=== PATIENT | female | born 1970 | race American Indian/Alaskan Native ===

== ENCOUNTER 2017-12-06 14:48 | Inpatient (IN) | payer OTHER ==
--- NOTE | 2017-12-06 17:38 | Emergency Department Report ---
<JOHNATHON FONTANEZ - Last Filed: 12/06/17 17:26> ED General Adult HPI - General Chief complaint: Upper Respiratory Infection Stated complaint: FLU LIKE SYMPTOMS Time Seen by Provider: 12/06/17 17:21 Source: patient Mode of arrival: Ambulatory Limitations: No Limitations - History of Present Illness Initial comments: 47-year-old -[place] female comes into the emergency room complaining of persistent cough with pain under her left rib when she coughs or sneezes. Patient also reports. Her shortness of breathe and fatigued lightheadedness and bilateral lower leg edema. Patient reports that most of these symptoms that started since March. She now reports that she had difficulty sleeping. The past medical history of fibroids. She does not have a primary care provider. She does admit to diarrhea today with 3 loose stools. She reports vomiting 3 times in the last 7 days. -: month(s) (8), year(s) Severity scale (0 -10): 0 - Related Data Previous Rx's Medication Instructions Recorded Last Taken Type ALBUTEROL Inhaler [ProAir HFA 2 puff IH QID PRN #1 unit 05/17/13 Unknown Rx Inhaler] Azithromycin [Zithromax] 500 mg PO QDAY #5 tablet 05/17/13 Unknown Rx Fluconazole [Diflucan] 150 mg PO QDAY #1 tablet 05/17/13 Unknown Rx Hycodan 1 tsp PO Q6HR PRN #120 ml 05/17/13 Unknown Rx Allergies Allergy/AdvReac Type Severity Reaction Status Date / Time No Known Allergies Allergy Unverified 05/17/13 01:43 ED Review of Systems ROS: Stated complaint: FLU LIKE SYMPTOMS Other details as noted in HPI ED Past Medical Hx - Past Medical History Hx Headaches / Migraines: Yes Additional medical history: Uterine Fibroids,obesity - Surgical History Additional Surgical History: Fibroid removal- 2003 - Social History Smoking Status: Current Every Day Smoker Substance Use Type: Alcohol - Medications Home Medications: Home Medications Medication Instructions Recorded Confirmed Last Taken Type ALBUTEROL Inhaler [ProAir HFA 2 puff IH QID PRN #1 unit 05/17/13 Unknown Rx Inhaler] Azithromycin [Zithromax] 500 mg PO QDAY #5 tablet 05/17/13 Unknown Rx Fluconazole [Diflucan] 150 mg PO QDAY #1 tablet 05/17/13 Unknown Rx Hycodan 1 tsp PO Q6HR PRN #120 ml 05/17/13 Unknown Rx ED Physical Exam - General Limitations: No Limitations General appearance: alert, in no apparent distress - Head Head exam: Present: atraumatic, normocephalic - Eye Eye exam: Present: normal appearance - ENT ENT exam: Present: mucous membranes moist - Neck Neck exam: Present: normal inspection - Respiratory Respiratory exam: Present: normal lung sounds bilaterally. Absent: respiratory distress - Cardiovascular Cardiovascular Exam: Present: regular rate, normal rhythm. Absent: systolic murmur, diastolic murmur, rubs, gallop - GI/Abdominal GI/Abdominal exam: Present: soft, normal bowel sounds - Rectal Rectal exam: Present: deferred - Extremities Exam Extremities exam: Present: pedal edema - Back Exam Back exam: Present: normal inspection, full ROM - Neurological Exam Neurological exam: Present: alert, oriented X3 - Psychiatric Psychiatric exam: Present: normal affect, normal mood - Skin Skin exam: Present: warm, dry, intact, normal color. Absent: rash ED Course Vital Signs 12/06/17 12/06/17 14:59 19:50 Temperature 98.8 F 98.4 F Pulse Rate 101 H 91 H Respiratory 18 20 Rate Blood Pressure 186/97 Blood Pressure 205/98 [Left] Blood Pressure 181/103 [Right] O2 Sat by Pulse 99 100 Oximetry Critical care attestation.: If time is entered above; I have spent that time in minutes in the direct care of this critically ill patient, excluding procedure time. ED Disposition Clinical Impression: Dyspnea, Cough, Smoker, Cardiomegaly, Uncontrolled hypertension, Noncompliance with medication regimen, Bilateral leg edema, Obesity Disposition: OP ADMIT IP TO THIS HOSP Condition: Stable <ANDREEA GARCIA - Last Filed: 12/06/17 21:29> ED General Adult HPI - History of Present Illness Initial comments: Patient was diagnosed with hypertension in 2008 and although she has taken a pill urinary she has never consistently taking hypertensive medication or followed up. Patient has dyspnea on exertion that waxes and wanes but progressively worsening. Decreased exercise tolerance reported. She has wheezing with coughing spells. ED Course - Consultations Consultation #1: 12/06/17 21:13 case d/w Dr Jossie soto, will consult ED Medical Decision Making - Lab Data Result diagrams: 12/06/17 17:32 12/06/17 17:32 Lab Results 12/06/17 12/06/17 12/06/17 Range/Units 17:32 17:32 17:32 WBC 12.9 H (4.5-11.0) K/mm3 RBC 3.86 (3.65-5.03) M/mm3 Hgb 10.1 (10.1-14.3) gm/dl Hct 34.2 (30.3-42.9) % MCV 89 (79-97) fl MCH 26 L (28-32) pg MCHC 30 (30-34) % RDW 20.8 H (13.2-15.2) % Plt Count 303 (140-440) K/mm3 Lymph % (Auto) 14.7 (13.4-35.0) % [place] % (Auto) 8.3 H (0.0-7.3) % Eos % (Auto) 0.6 (0.0-4.3) % Baso % (Auto) 1.8 (0.0-1.8) % Lymph # 1.9 (1.2-5.4) K/mm3 [place] # 1.1 H (0.0-0.8) K/mm3 Eos # 0.1 (0.0-0.4) K/mm3 Baso # 0.2 H (0.0-0.1) K/mm3 Seg Neutrophils % 74.6 H (40.0-70.0) % Seg Neutrophils # 9.6 H (1.8-7.7) K/mm3 Sodium 141 (137-145) mmol/L Potassium 4.0 (3.6-5.0) mmol/L Chloride 100.5 (98-107) mmol/L Carbon Dioxide 28 (22-30) mmol/L Anion Gap 17 mmol/L BUN 8 (7-17) mg/dL Creatinine 0.7 (0.7-1.2) mg/dL Estimated GFR > 60 ml/min BUN/Creatinine Ratio 11 % Glucose 106 H (65-100) mg/dL Calcium 8.6 (8.4-10.2) mg/dL Total Bilirubin 0.20 (0.1-1.2) mg/dL AST 30 (5-40) units/L ALT 23 (7-56) units/L Alkaline Phosphatase 69 (35-129) units/L NT-Pro-B Natriuret Pep 96.33 (0-450) pg/mL Total Protein 7.3 (6.3-8.2) g/dL Albumin 3.6 L (3.9-5) g/dL Albumin/Globulin Ratio 1.0 % HCG, Qual Negative (Negative) Urine Color (Yellow) Urine Turbidity (Clear) Urine pH (5.0-7.0) Ur Specific [place] (1.003-1.030) Urine Protein (Negative) mg/dL Urine Glucose (UA) (Negative) mg/dL Urine Ketones (Negative) mg/dL Urine Blood (Negative) Urine Nitrite (Negative) Urine Bilirubin (Negative) Urine Urobilinogen (<2.0) mg/dL Ur Leukocyte Esterase (Negative) Urine WBC (Auto) (0.0-6.0) /HPF Urine RBC (Auto) (0.0-6.0) /HPF U Epithel Cells (Auto) (0-13.0) /HPF Urine Bacteria (Auto) (Negative) /HPF Urine Mucus /HPF 12/06/17 Range/Units 17:57 WBC (4.5-11.0) K/mm3 RBC (3.65-5.03) M/mm3 Hgb (10.1-14.3) gm/dl Hct (30.3-42.9) % MCV (79-97) fl MCH (28-32) pg MCHC (30-34) % RDW (13.2-15.2) % Plt Count (140-440) K/mm3 Lymph % (Auto) (13.4-35.0) % [place] % (Auto) (0.0-7.3) % Eos % (Auto) (0.0-4.3) % Baso % (Auto) (0.0-1.8) % Lymph # (1.2-5.4) K/mm3 [place] # (0.0-0.8) K/mm3 Eos # (0.0-0.4) K/mm3 Baso # (0.0-0.1) K/mm3 Seg Neutrophils % (40.0-70.0) % Seg Neutrophils # (1.8-7.7) K/mm3 Sodium (137-145) mmol/L Potassium (3.6-5.0) mmol/L Chloride (98-107) mmol/L Carbon Dioxide (22-30) mmol/L Anion Gap mmol/L BUN (7-17) mg/dL Creatinine (0.7-1.2) mg/dL Estimated GFR ml/min BUN/Creatinine Ratio % Glucose (65-100) mg/dL Calcium (8.4-10.2) mg/dL Total Bilirubin (0.1-1.2) mg/dL AST (5-40) units/L ALT (7-56) units/L Alkaline Phosphatase (35-129) units/L NT-Pro-B Natriuret Pep (0-450) pg/mL Total Protein (6.3-8.2) g/dL Albumin (3.9-5) g/dL Albumin/Globulin Ratio % HCG, Qual (Negative) Urine Color Yellow (Yellow) Urine Turbidity Clear (Clear) Urine pH 6.0 (5.0-7.0) Ur Specific [place] 1.025 (1.003-1.030) Urine Protein 100 mg/dl (Negative) mg/dL Urine Glucose (UA) Neg (Negative) mg/dL Urine Ketones Neg (Negative) mg/dL Urine Blood Neg (Negative) Urine Nitrite Neg (Negative) Urine Bilirubin Neg (Negative) Urine Urobilinogen 4.0 (<2.0) mg/dL Ur Leukocyte Esterase Neg (Negative) Urine WBC (Auto) 2.0 (0.0-6.0) /HPF Urine RBC (Auto) 2.0 (0.0-6.0) /HPF U Epithel Cells (Auto) 4.0 (0-13.0) /HPF Urine Bacteria (Auto) 1+ (Negative) /HPF Urine Mucus 3+ /HPF - EKG Data -: EKG Interpreted by Ct EKG shows normal: sinus rhythm, axis (-8), QRS complexes (85), ST-T waves (lat t inv) Rate: normal (96) - Radiology Data Radiology results: report reviewed cxr pa and lat IMPRESSION: No acute cardiopulmonary process seen. Marked cardiomegaly. - Medical Decision Making Plan to admit patient to the hospital for further cardiac evaluation and blood pressure control. Symptoms seem to be chronic but progressing. Case discussed with fibre cement moulder. Clonidine given in the ED for blood pressure management On exam patient has pitting one plus edema extending to legs - Differential Diagnosis bronchitis, CHF, pneumonia, renal failure, liver failure, COPD Critical Care Time: No ED Disposition Is pt being admited?: Yes Time of Disposition: 21:17 (Dr March/[facility])
[2017-12-06 17:50] LABS: Basophils # (Auto) 0.2 K/mm3 (0.0-0.1); Basophils % (Auto) 1.8 % (0.0-1.8); Eosinophils # (Auto) 0.1 K/mm3 (0.0-0.4); Eosinophils % (Auto) 0.6 % (0.0-4.3); Lymphocytes # (Auto) 1.9 K/mm3 (1.2-5.4); Lymphocytes % (Auto) 14.7 % (13.4-35.0); Mean Corpuscular HGB Conc 30 % (30-34); Mean Corpuscular Hemoglobin 26 pg (28-32); Mean Corpuscular Volume 89 fl (79-97); Monocytes # (Auto) 1.1 K/mm3 (0.0-0.8); Monocytes % (Auto) 8.3 % (0.0-7.3); Platelet Count 303 K/mm3 (140-440); Red Blood Count 3.86 M/mm3 (3.65-5.03)
[2017-12-06 18:01] LABS: Hematocrit 34.2 % (30.3-42.9); Hemoglobin 10.1 gm/dl (10.1-14.3); Red Cell Distribution Width 20.8 % (13.2-15.2)
[2017-12-06 18:10] LABS: Alanine Aminotransferase 23 units/L (7-56); Albumin 3.6 g/dL (3.9-5); BUN/Creatinine Ratio 11; Blood Urea Nitrogen 8 mg/dL (7-17); Calcium 8.6 mg/dL (8.4-10.2); Hemolysis Index 8
--- NOTE | 2017-12-06 19:22 | XRay Report ---
FINAL REPORT EXAM: XR CHEST ROUTINE 2V HISTORY: SOB TECHNIQUE: PA and lateral views of the chest PRIORS: None. FINDINGS: Lines, tubes, and devices: N/A Lungs and pleura: Trachea is normal in position. Lungs are clear of infiltrate, pleural effusion, vascular congestion, or pneumothorax. Cardiomediastinal silhouette: The heart is markedly enlarged. Other: Bony structures are intact. IMPRESSION: No acute cardiopulmonary process seen. Marked cardiomegaly.
[2017-12-06 19:39] LABS: Bacteria,Urine 1+ /HPF (Negative); Bilirubin,Urine NEG (Negative); Blood,Urine NEG (Negative); Color,Urine Yellow (Yellow); Mucus,Urine 3+ /HPF
[2017-12-06] MEDS ORDERED: CATAPRES PO ONE (20:40)
[2017-12-06] MEDS ORDERED: NITROSTAT SL PRN (22:59)
[2017-12-06] MEDS ORDERED: XANAX PO PRN (22:59)
[2017-12-06] MEDS ORDERED: IMDUR PO SCH (23:03)
[2017-12-06] MEDS ORDERED: TYLENOL PO PRN (23:07)
[2017-12-06] MEDS ORDERED: ZOFRAN IV PRN (23:07)
[2017-12-06] MEDS ORDERED: APRESOLINE IV PRN (23:08)
[2017-12-06] MEDS ORDERED: GUAIFENESIN DM SYRUP PO PRN (23:09)
[2017-12-06] MEDS: APRESOLINE PO SCH (23:46)
[2017-12-06] MEDS: LASIX IV SCH (23:46)
[2017-12-06] MEDS: LOPRESSOR PO SCH (23:47)
--- NOTE | 2017-12-07 01:04 | History and Physical Report ---
History of Present Illness Date of examination: 12/06/17 Date of admission: 12/06/17 23:13 Chief complaint: chest pain History of present illness: Patient is a 47 year old -[place] female who presented to the ED on account of 2 days history of pleuritic chest pain. She has associated dry cough , bilateral leg swelling, sob, orthopnea, PND, diaphoresis, nausea with vomiting , dizziness and blurry vision. No fever, chills, palpitation, headaches, syncope or loss of consciousness. She also has positive history of abdominal distention, no abdomen pain, constipation or diarrhea. Past History Past Medical History: hypertension, migraines, other (uterine fibroids, morbid obesity) Past Surgical History: Other (fibroid removal) Social history: smoking (for 25 years), other (admits to occasional alcohol use , but denies illicit drug use) Family history: other (reviewed and noncontributory) Medications and Allergies Allergies Allergy/AdvReac Type Severity Reaction Status Date / Time No Known Allergies Allergy Unverified 05/17/13 01:43 Home Medications Medication Instructions Recorded Confirmed Last Taken Type Azithromycin [Zithromax] 500 mg PO QDAY #5 tablet 05/17/13 Unknown Rx Fluconazole [Diflucan] 150 mg PO QDAY #1 tablet 05/17/13 Unknown Rx Hycodan 1 tsp PO Q6HR PRN #120 ml 05/17/13 Unknown Rx RX: ALBUTEROL Inhaler [ProAir HFA 2 puff IH QID PRN #1 unit 05/17/13 Unknown Rx Inhaler] Active Meds: Active Medications Acetaminophen (Tylenol) 650 mg PO Q6H PRN PRN Reason: Fever Alprazolam (Xanax) 0.125 mg PO Q8H PRN PRN Reason: Agitation Aspirin (Baby Aspirin) 81 mg PO QDAY [facility] Enoxaparin Sodium (Lovenox) 40 mg SUB-Q QDAY [facility] Furosemide (Lasix) 40 mg IV Q8H [facility] Last Admin: 12/06/17 23:46 Dose: 40 mg Guaifenesin (Guaifenesin Dm Syrup) 10 ml PO Q6H PRN PRN Reason: Cough Hydralazine HCl (Apresoline) 50 mg PO TID [facility] Last Admin: 12/06/17 23:46 Dose: 50 mg Hydralazine HCl (Apresoline) 20 mg IV Q4H PRN PRN Reason: Blood Pressure Isosorbide Mononitrate (Imdur) 60 mg PO QDAY [facility] Last Admin: 12/06/17 23:48 Dose: 60 mg Losartan Potassium (Cozaar) 100 mg PO QDAY [facility] Metoprolol Tartrate (Lopressor) 50 mg PO BID [facility] Last Admin: 12/06/17 23:47 Dose: 50 mg Nitroglycerin (Nitrostat) 0.4 mg SL .Q5MIN PRN PRN Reason: Chest Pain Ondansetron HCl (Zofran) 4 mg IV Q6H PRN PRN Reason: Nausea Review of Systems All systems: negative (except as documented in the HPI, all other systems were reviewed and negative) Exam - Constitutional Vitals: Temp Pulse Resp BP Pulse Ox 98.2 F 94 H 20 185/91 100 12/06/17 21:57 12/06/17 23:48 12/06/17 21:57 12/06/17 23:48 12/06/17 21:57 General appearance: Present: no acute distress, well-nourished, other (morbidly obese) - EENT Eyes: Present: PERRL, EOM intact ENT: hearing intact, clear oral mucosa - Neck Neck: Present: supple, normal ROM - Respiratory Respiratory effort: normal Respiratory: bilateral: diminished - Cardiovascular Rhythm: regular Heart Sounds: Present: S1 & S2 - Extremities Extremities: pulses symmetrical Extremity abnormal: edema (in BLE) Peripheral Pulses: within normal limits - Abdominal General gastrointestinal: Present: soft, non-tender, distended, normal bowel sounds Female genitourinary: Present: normal - Integumentary Integumentary: Present: warm, dry - Musculoskeletal Musculoskeletal: gait normal, strength equal bilaterally - Psychiatric Psychiatric: appropriate mood/affect, intact judgment & insight - Neurologic Neurologic: CNII-XII intact, moves all extremities Results - Labs CBC & Chem 7: 12/06/17 17:32 12/06/17 17:32 Labs: Laboratory Last Values WBC 12.9 K/mm3 (4.5-11.0) H 12/06/17 17:32 RBC 3.86 M/mm3 (3.65-5.03) 12/06/17 17:32 Hgb 10.1 gm/dl (10.1-14.3) 12/06/17 17:32 Hct 34.2 % (30.3-42.9) 12/06/17 17:32 MCV 89 fl (79-97) 12/06/17 17:32 MCH 26 pg (28-32) L 12/06/17 17:32 MCHC 30 % (30-34) 12/06/17 17:32 RDW 20.8 % (13.2-15.2) H 12/06/17 17:32 Plt Count 303 K/mm3 (140-440) 12/06/17 17:32 Lymph % (Auto) 14.7 % (13.4-35.0) 12/06/17 17:32 [place] % (Auto) 8.3 % (0.0-7.3) H 12/06/17 17:32 Eos % (Auto) 0.6 % (0.0-4.3) 12/06/17 17:32 Baso % (Auto) 1.8 % (0.0-1.8) 12/06/17 17:32 Lymph # 1.9 K/mm3 (1.2-5.4) 12/06/17 17:32 [place] # 1.1 K/mm3 (0.0-0.8) H 12/06/17 17:32 Eos # 0.1 K/mm3 (0.0-0.4) 12/06/17 17:32 Baso # 0.2 K/mm3 (0.0-0.1) H 12/06/17 17:32 Seg Neutrophils % 74.6 % (40.0-70.0) H 12/06/17 17:32 Seg Neutrophils # 9.6 K/mm3 (1.8-7.7) H 12/06/17 17:32 Sodium 141 mmol/L (137-145) 12/06/17 17:32 Potassium 4.0 mmol/L (3.6-5.0) 12/06/17 17:32 Chloride 100.5 mmol/L (98-107) 12/06/17 17:32 Carbon Dioxide 28 mmol/L (22-30) 12/06/17 17:32 Anion Gap 17 mmol/L 12/06/17 17:32 BUN 8 mg/dL (7-17) 12/06/17 17:32 Creatinine 0.7 mg/dL (0.7-1.2) 12/06/17 17:32 Estimated GFR > 60 ml/min 12/06/17 17:32 BUN/Creatinine Ratio 11 % 12/06/17 17:32 Glucose 106 mg/dL (65-100) H 12/06/17 17:32 Calcium 8.6 mg/dL (8.4-10.2) 12/06/17 17:32 Total Bilirubin 0.20 mg/dL (0.1-1.2) 12/06/17 17:32 AST 30 units/L (5-40) 12/06/17 17:32 ALT 23 units/L (7-56) 12/06/17 17:32 Alkaline Phosphatase 69 units/L (35-129) 12/06/17 17:32 Total Creatine Kinase 167 units/L (30-135) H 12/06/17 17:32 Troponin T < 0.010 ng/mL (0.00-0.029) 12/06/17 23:30 NT-Pro-B Natriuret Pep 96.33 pg/mL (0-450) 12/06/17 17:32 Total Protein 7.3 g/dL (6.3-8.2) 12/06/17 17:32 Albumin 3.6 g/dL (3.9-5) L 12/06/17 17:32 Albumin/Globulin Ratio 1.0 % 12/06/17 17:32 HCG, Qual Negative (Negative) 12/06/17 17:32 Urine Color Yellow (Yellow) 12/06/17 17:57 Urine Turbidity Clear (Clear) 12/06/17 17:57 Urine pH 6.0 (5.0-7.0) 12/06/17 17:57 Ur Specific [place] 1.025 (1.003-1.030) 12/06/17 17:57 Urine Protein 100 mg/dl mg/dL (Negative) 12/06/17 17:57 Urine Glucose (UA) Neg mg/dL (Negative) 12/06/17 17:57 Urine Ketones Neg mg/dL (Negative) 12/06/17 17:57 Urine Blood Neg (Negative) 12/06/17 17:57 Urine Nitrite Neg (Negative) 12/06/17 17:57 Urine Bilirubin Neg (Negative) 12/06/17 17:57 Urine Urobilinogen 4.0 mg/dL (<2.0) 12/06/17 17:57 Ur Leukocyte Esterase Neg (Negative) 12/06/17 17:57 Urine WBC (Auto) 2.0 /HPF (0.0-6.0) 12/06/17 17:57 Urine RBC (Auto) 2.0 /HPF (0.0-6.0) 12/06/17 17:57 U Epithel Cells (Auto) 4.0 /HPF (0-13.0) 12/06/17 17:57 Urine Bacteria (Auto) 1+ /HPF (Negative) 12/06/17 17:57 Urine Mucus 3+ /HPF 12/06/17 17:57 Assessment and Plan Assessment and plan: Hypertensive cardiomyopathy -Will place patient on a CHF protocol -Will order echocardiogram to assess EF and valvular function. -Vegetable Farm Manager was consulted in the ED. Hypertensive emergency -Will place patient on both scheduled and when necessary antihypertensives Chest pain, rule out ACS -Will continue serial troponin level monitoring Leukocytosis -Probably reactive, will monitor WBC level Morbid obesity with BMI of 49.5 -Weight loss recommended Migraines -placed on PRN analgesics Prophylaxis -DVT prophylaxis with Lovenox and GI prophylaxis with Protonix 38 minutes spent in coordinating care
[2017-12-07] MEDS ORDERED: NORCO 5/325 PO PRN (01:15)
[2017-12-07] MEDS: LASIX IV SCH ×3 (06:39→22:13)
[2017-12-07 06:45] LABS: Basophils % (Auto) 0.5 % (0.0-1.8); Eosinophils # (Auto) 0.1 K/mm3 (0.0-0.4); Eosinophils % (Auto) 0.7 % (0.0-4.3); Lymphocytes % (Auto) 19.1 % (13.4-35.0); Mean Corpuscular HGB Conc 30 % (30-34); Mean Corpuscular Volume 88 fl (79-97); Monocytes # (Auto) 0.8 K/mm3 (0.0-0.8); Monocytes % (Auto) 8.3 % (0.0-7.3); Platelet Count 287 K/mm3 (140-440); Red Blood Count 3.56 M/mm3 (3.65-5.03)
[2017-12-07 06:46] LABS: Hematocrit 31.3 % (30.3-42.9); Hemoglobin 9.2 gm/dl (10.1-14.3); Mean Corpuscular Hemoglobin 26 pg (28-32); Red Cell Distribution Width 20.7 % (13.2-15.2)
[2017-12-07 07:05] LABS: BUN/Creatinine Ratio 13; Blood Urea Nitrogen 9 mg/dL (7-17); Calcium 8.2 mg/dL (8.4-10.2); Hemolysis Index 0
[2017-12-07] MEDS: APRESOLINE PO SCH ×3 (07:58→22:11)
--- NOTE | 2017-12-07 09:58 | Progress Note ---
Assessment and Plan Hypertensive cardiomyopathy -Will place patient on a CHF protocol -Will order echocardiogram to assess EF and valvular function. -Turret Lathe Operator was consulted in the ED. Hypertensive emergency -Will place patient on both scheduled and when necessary antihypertensives Chest pain, rule out ACS -Will continue serial troponin level monitoring Leukocytosis -Probably reactive, will monitor WBC level Morbid obesity with BMI of 49.5 -Weight loss recommended Migraines -placed on PRN analgesics Prophylaxis -DVT prophylaxis with Lovenox and GI prophylaxis with Protonix Subjective Date of service: 12/07/17 Principal diagnosis: chest pain Interval history: hypertensive cardiomyopathy Objective - Constitutional Vitals: Vital Signs - 12hr 12/06/17 12/06/17 12/06/17 21:57 23:46 23:47 Temperature 98.2 F Pulse Rate 90 94 H 94 H Respiratory 20 Rate Blood Pressure 185/91 185/91 Blood Pressure 190/99 [Right] O2 Sat by Pulse 100 Oximetry 12/06/17 12/06/17 12/07/17 23:48 23:55 00:34 Temperature 98.2 F Pulse Rate 94 H 105 H 93 H Respiratory 20 Rate Blood Pressure 185/91 178/89 Blood Pressure [Right] O2 Sat by Pulse 97 Oximetry 12/07/17 12/07/17 12/07/17 00:35 05:22 07:58 Temperature 98.0 F Pulse Rate 94 H 81 81 Respiratory 20 Rate Blood Pressure 115/64 Blood Pressure 115/64 [Right] O2 Sat by Pulse 98 97 Oximetry General appearance: Present: no acute distress, well-nourished - EENT Eyes: PERRL, EOM intact - Neck Neck: supple, normal ROM - Respiratory Respiratory effort: normal Respiratory: bilateral: CTA - Cardiovascular Rhythm: regular Heart Sounds: Present: S1 & S2. Absent: gallop, rub Extremities: pulses intact, No edema, normal color, Full ROM - Gastrointestinal General gastrointestinal: Present: soft, non-tender, non-distended, normal bowel sounds - Genitourinary Female genitourinary: normal - Integumentary Integumentary: clear, warm, dry - Musculoskeletal Musculoskeletal: 1, strength equal bilaterally - Neurologic Neurologic: moves all extremities - Psychiatric Psychiatric: memory intact, appropriate mood/affect, intact judgment & insight - Labs CBC & Chem 7: 12/07/17 06:13 12/07/17 06:13 Labs: Abnormal lab results 12/06/17 12/06/17 12/07/17 Range/Units 17:32 17:32 06:13 WBC 12.9 H (4.5-11.0) K/mm3 RBC (3.65-5.03) M/mm3 Hgb (10.1-14.3) gm/dl MCH 26 L (28-32) pg RDW 20.8 H (13.2-15.2) % [place] % (Auto) 8.3 H (0.0-7.3) % [place] # 1.1 H (0.0-0.8) K/mm3 Baso # 0.2 H (0.0-0.1) K/mm3 Seg Neutrophils % 74.6 H (40.0-70.0) % Seg Neutrophils # 9.6 H (1.8-7.7) K/mm3 Glucose 106 H 113 H (65-100) mg/dL Calcium 8.2 L (8.4-10.2) mg/dL Total Creatine Kinase 167 H (30-135) units/L Albumin 3.6 L (3.9-5) g/dL 12/07/17 Range/Units 06:13 WBC (4.5-11.0) K/mm3 RBC 3.56 L (3.65-5.03) M/mm3 Hgb 9.2 L (10.1-14.3) gm/dl MCH 26 L (28-32) pg RDW 20.7 H (13.2-15.2) % [place] % (Auto) 8.3 H (0.0-7.3) % [place] # (0.0-0.8) K/mm3 Baso # (0.0-0.1) K/mm3 Seg Neutrophils % 71.4 H (40.0-70.0) % Seg Neutrophils # (1.8-7.7) K/mm3 Glucose (65-100) mg/dL Calcium (8.4-10.2) mg/dL Total Creatine Kinase (30-135) units/L Albumin (3.9-5) g/dL
--- NOTE | 2017-12-07 10:51 | Consultation ---
History of Present Illness Consult date: 12/07/17 Consult reason: congestive heart failure History of present illness: This is a 47yr old woman who presented to the emergency department with complaints of shortness of breath and chest pain, admitted for further evaluation. Patient reports shortness of breath ongoing for several months, now associated with minimal exertion, coughs, chest pain and lower extremity edema. Initial workup documents a blood pressure of 205/98. A chest x-ray reports marked cardiomegaly but no interstitial edema. Patient gives a history of Hypertension, noncompliant with medications and outpatient follow-ups. Past History Past Medical History: hypertension, migraines, other (uterine fibroids, morbid obesity) Past Surgical History: Other (fibroid removal) Social history: smoking (for 25 years), other (admits to occasional alcohol use , but denies illicit drug use) Family history: other (reviewed and noncontributory) Medications and Allergies Allergies Allergy/AdvReac Type Severity Reaction Status Date / Time No Known Allergies Allergy Unverified 05/17/13 01:43 Home Medications Medication Instructions Recorded Confirmed Last Taken Type No Known Home Medications [No 12/07/17 12/07/17 Unknown History Reported Home Medications] Active Meds: Active Medications Acetaminophen (Tylenol) 650 mg PO Q6H PRN PRN Reason: Fever Acetaminophen/Hydrocodone Bitart ([place] 5/325) 1 each PO Q4H PRN PRN Reason: Pain, Moderate (4-6) Alprazolam (Xanax) 0.125 mg PO Q8H PRN PRN Reason: Agitation Aspirin (Baby Aspirin) 81 mg PO QDAY [facility] Enoxaparin Sodium (Lovenox) 40 mg SUB-Q QDAY [facility] Furosemide (Lasix) 40 mg IV Q8H [facility] Last Admin: 12/07/17 06:39 Dose: 40 mg Guaifenesin (Guaifenesin Dm Syrup) 10 ml PO Q6H PRN PRN Reason: Cough Hydralazine HCl (Apresoline) 50 mg PO TID [facility] Last Admin: 12/07/17 07:58 Dose: 50 mg Hydralazine HCl (Apresoline) 20 mg IV Q4H PRN PRN Reason: Blood Pressure Losartan Potassium (Cozaar) 100 mg PO QDAY [facility] Metoprolol Tartrate (Lopressor) 50 mg PO BID [facility] Last Admin: 12/06/17 23:47 Dose: 50 mg Nitroglycerin (Nitrostat) 0.4 mg SL .Q5MIN PRN PRN Reason: Chest Pain Ondansetron HCl (Zofran) 4 mg IV Q6H PRN PRN Reason: Nausea Pantoprazole Sodium (Protonix) 40 mg PO QDAY [facility] Physical Examination Vital Signs Temp Pulse Resp BP Pulse Ox 98.8 F 101 H 18 186/97 99 12/06/17 14:59 12/06/17 14:59 12/06/17 14:59 12/06/17 14:59 12/06/17 14:59 General appearance: no acute distress HEENT: Positive: PERRL Neck: Positive: trachea midline Cardiac: Positive: Reg Rate and Rhythm Lungs: Positive: Decreased Breath Sounds Neuro: Positive: Grossly Intact Extremities: Present: +1 Edema Results 12/07/17 06:13 12/07/17 06:13 Cardiac Enzymes 12/06/17 Range/Units 17:32 AST 30 (5-40) units/L CBC 12/06/17 12/07/17 Range/Units 17:32 06:13 WBC 12.9 H 10.2 (4.5-11.0) K/mm3 RBC 3.86 3.56 L (3.65-5.03) M/mm3 Hgb 10.1 9.2 L (10.1-14.3) gm/dl Hct 34.2 31.3 (30.3-42.9) % Plt Count 303 287 (140-440) K/mm3 Lymph # 1.9 2.0 (1.2-5.4) K/mm3 [place] # 1.1 H 0.8 (0.0-0.8) K/mm3 Eos # 0.1 0.1 (0.0-0.4) K/mm3 Baso # 0.2 H 0.0 (0.0-0.1) K/mm3 Comprehensive Metabolic Panel 12/06/17 12/07/17 Range/Units 17:32 06:13 Sodium 141 137 (137-145) mmol/L Potassium 4.0 3.6 (3.6-5.0) mmol/L Chloride 100.5 102.3 (98-107) mmol/L Carbon Dioxide 28 27 (22-30) mmol/L BUN 8 9 (7-17) mg/dL Creatinine 0.7 0.7 (0.7-1.2) mg/dL Glucose 106 H 113 H (65-100) mg/dL Calcium 8.6 8.2 L (8.4-10.2) mg/dL AST 30 (5-40) units/L ALT 23 (7-56) units/L Alkaline Phosphatase 69 (35-129) units/L Total Protein 7.3 (6.3-8.2) g/dL Albumin 3.6 L (3.9-5) g/dL Assessment and Plan Shortness of breath Hypertension -better Obesity Tobacco abuse We will obtain an echocardiogram for LVEF assessment.
[2017-12-07] MEDS: PROTONIX PO SCH (11:34)
[2017-12-07] MEDS: LOPRESSOR PO SCH ×2 (11:34→22:11)
[2017-12-07] MEDS: BABY ASPIRIN PO SCH (11:35)
[2017-12-07] MEDS: LOVENOX SUB-Q SCH (11:35)
[2017-12-07] MEDS: COZAAR PO SCH (11:39)
[2017-12-08] MEDS: LASIX IV SCH ×3 (05:22→17:50)
[2017-12-08 06:02] LABS: Basophils # (Auto) 0.1 K/mm3 (0.0-0.1); Basophils % (Auto) 0.8 % (0.0-1.8); Eosinophils # (Auto) 0.1 K/mm3 (0.0-0.4); Eosinophils % (Auto) 0.6 % (0.0-4.3); Hematocrit 32.4 % (30.3-42.9); Lymphocytes # (Auto) 1.9 K/mm3 (1.2-5.4); Lymphocytes % (Auto) 19.8 % (13.4-35.0); Mean Corpuscular HGB Conc 31 % (30-34); Mean Corpuscular Hemoglobin 27 pg (28-32); Mean Corpuscular Volume 87 fl (79-97); Monocytes # (Auto) 0.9 K/mm3 (0.0-0.8); Monocytes % (Auto) 8.9 % (0.0-7.3); Platelet Count 271 K/mm3 (140-440); Red Blood Count 3.74 M/mm3 (3.65-5.03)
[2017-12-08 06:03] LABS: Red Cell Distribution Width 20.8 % (13.2-15.2)
[2017-12-08 06:14] LABS: Alanine Aminotransferase 20 units/L (7-56); Albumin 3.5 g/dL (3.9-5); BUN/Creatinine Ratio 17; Blood Urea Nitrogen 12 mg/dL (7-17); Calcium 8.7 mg/dL (8.4-10.2); Hemolysis Index 16
[2017-12-08] MEDS: LOVENOX SUB-Q SCH (10:47)
[2017-12-08] MEDS: COZAAR PO SCH (10:47)
[2017-12-08] MEDS: APRESOLINE PO SCH ×3 (10:47→21:08)
[2017-12-08] MEDS: BABY ASPIRIN PO SCH (10:48)
[2017-12-08] MEDS: LOPRESSOR PO SCH ×2 (10:48→21:15)
[2017-12-08] MEDS: PROTONIX PO SCH (10:48)
--- NOTE | 2017-12-08 11:25 | Progress Note ---
Assessment and Plan Shortness of breath Hypertension -better Nocturnal pause on telemetry strips patient has not had any silvestre-arrhythmias while awake. Obesity Tobacco abuse Normal LVEF on echocardiogram. Recommendations: Check a TSH and magnesium. Pre-discharge cardiac evaluation with a stress test tomorrow morning. Outpatient pulmonary evaluation for sleep apnea. Subjective Date of service: 12/08/17 Principal diagnosis: chest pain Interval history: Patient noted nocturnal sinus pauses, up to 4 seconds on telemetry monitoring overnight. Patient has not had any silvestre- arrhythmias while awake. Objective Vital Signs Temp Pulse Resp BP BP Pulse Ox 12/08/17 10:47 83 144/95 12/08/17 08:05 82 98 12/08/17 06:00 77 12/08/17 05:06 98.0 F 79 20 146/85 98 12/08/17 00:42 98.0 F 80 19 155/63 98 12/07/17 22:11 81 160/81 12/07/17 22:00 87 12/07/17 21:08 98.3 F 86 20 160/81 97 12/07/17 18:10 98.1 F 79 18 140/80 95 12/07/17 17:14 80 95 12/07/17 15:17 74 147/74 12/07/17 15:05 80 12/07/17 11:39 74 147/74 12/07/17 11:34 87 147/74 - Physical Examination General: No Apparent Distress HEENT: Positive: PERRL Neck: Positive: trachea midline Cardiac: Positive: Reg Rate and Rhythm Lungs: Positive: Decreased Breath Sounds Neuro: Positive: Grossly Intact Extremities: Present: +1 Edema - Labs and Meds Cardiac Enzymes 12/08/17 Range/Units 05:26 AST 26 (5-40) units/L CBC 12/08/17 Range/Units 05:26 WBC 9.8 (4.5-11.0) K/mm3 RBC 3.74 (3.65-5.03) M/mm3 Hgb 10.0 L (10.1-14.3) gm/dl Hct 32.4 (30.3-42.9) % Plt Count 271 (140-440) K/mm3 Lymph # 1.9 (1.2-5.4) K/mm3 [place] # 0.9 H (0.0-0.8) K/mm3 Eos # 0.1 (0.0-0.4) K/mm3 Baso # 0.1 (0.0-0.1) K/mm3 Comprehensive Metabolic Panel 12/08/17 Range/Units 05:26 Sodium 142 (137-145) mmol/L Potassium 3.9 (3.6-5.0) mmol/L Chloride 99.9 (98-107) mmol/L Carbon Dioxide 29 (22-30) mmol/L BUN 12 (7-17) mg/dL Creatinine 0.7 (0.7-1.2) mg/dL Glucose 112 H (65-100) mg/dL Calcium 8.7 (8.4-10.2) mg/dL AST 26 (5-40) units/L ALT 20 (7-56) units/L Alkaline Phosphatase 61 (35-129) units/L Total Protein 7.0 (6.3-8.2) g/dL Albumin 3.5 L (3.9-5) g/dL
--- NOTE | 2017-12-08 15:35 | Progress Note ---
Assessment and Plan Assessment and plan: Acute diastolic HF exacerbation -improving on tx -echocardiogram showed EF of 55-60% with diastolic dysfunction -Cat Dog Or Other Pet Groomer following Hypertension -BP improved on current meds Chest pain, resolved -serial troponin levels neg -for NST in am Leukocytosis, likely reactive -resolved Morbid obesity with BMI of 49.5 -pt counseled on weight loss Migraines -on PRN analgesics Nocturnal pauses per site monitor -probably sec to LAUREN -pt will need outpt sleep study -for NST in am to r/o ACS Tobacco abuse -pt counseled on cessation Prophylaxis -DVT prophylaxis with Lovenox Disp: d/c pt when medically stable History Interval history: Pt has no new complaints. She denies chest pain or sob. Reported nocturnal pauses on her site monitor. Hospitalist Physical - Constitutional Vitals: Temp Pulse Resp BP Pulse Ox 98.0 F 84 18 139/75 96 12/08/17 10:39 12/08/17 14:56 12/08/17 14:50 12/08/17 14:56 12/08/17 14:50 General appearance: Present: no acute distress - EENT Eyes: Present: PERRL, EOM intact - Neck Neck: Present: supple - Respiratory Respiratory effort: normal Respiratory: bilateral: CTA - Cardiovascular Rhythm: regular Heart Sounds: Present: S1 & S2 - Extremities Extremity abnormal: edema (LT LE) - Abdominal General gastrointestinal: soft, non-tender, normal bowel sounds - Neurologic Neurologic: CNII-XII intact Results - Labs CBC & Chem 7: 12/08/17 05:26 12/08/17 05:26 Labs: Laboratory Last Values WBC 9.8 K/mm3 (4.5-11.0) 12/08/17 05:26 RBC 3.74 M/mm3 (3.65-5.03) 12/08/17 05:26 Hgb 10.0 gm/dl (10.1-14.3) L 12/08/17 05:26 Hct 32.4 % (30.3-42.9) 12/08/17 05:26 MCV 87 fl (79-97) 12/08/17 05:26 MCH 27 pg (28-32) L 12/08/17 05:26 MCHC 31 % (30-34) 12/08/17 05:26 RDW 20.8 % (13.2-15.2) H 12/08/17 05:26 Plt Count 271 K/mm3 (140-440) 12/08/17 05:26 Lymph % (Auto) 19.8 % (13.4-35.0) 12/08/17 05:26 [place] % (Auto) 8.9 % (0.0-7.3) H 12/08/17 05:26 Eos % (Auto) 0.6 % (0.0-4.3) 12/08/17 05:26 Baso % (Auto) 0.8 % (0.0-1.8) 12/08/17 05:26 Lymph # 1.9 K/mm3 (1.2-5.4) 12/08/17 05:26 [place] # 0.9 K/mm3 (0.0-0.8) H 12/08/17 05:26 Eos # 0.1 K/mm3 (0.0-0.4) 12/08/17 05:26 Baso # 0.1 K/mm3 (0.0-0.1) 12/08/17 05:26 Seg Neutrophils % 69.9 % (40.0-70.0) 12/08/17 05:26 Seg Neutrophils # 6.9 K/mm3 (1.8-7.7) 12/08/17 05:26 Sodium 142 mmol/L (137-145) 12/08/17 05:26 Potassium 3.9 mmol/L (3.6-5.0) 12/08/17 05:26 Chloride 99.9 mmol/L (98-107) 12/08/17 05:26 Carbon Dioxide 29 mmol/L (22-30) 12/08/17 05:26 Anion Gap 17 mmol/L 12/08/17 05:26 BUN 12 mg/dL (7-17) 12/08/17 05:26 Creatinine 0.7 mg/dL (0.7-1.2) 12/08/17 05:26 Estimated GFR > 60 ml/min 12/08/17 05:26 BUN/Creatinine Ratio 17 % 12/08/17 05:26 Glucose 112 mg/dL (65-100) H 12/08/17 05:26 Hemoglobin A1c 6.0 % (4-6) 12/07/17 06:52 Calcium 8.7 mg/dL (8.4-10.2) 12/08/17 05:26 Total Bilirubin 0.20 mg/dL (0.1-1.2) 12/08/17 05:26 AST 26 units/L (5-40) 12/08/17 05:26 ALT 20 units/L (7-56) 12/08/17 05:26 Alkaline Phosphatase 61 units/L (35-129) 12/08/17 05:26 Total Creatine Kinase 167 units/L (30-135) H 12/06/17 17:32 Troponin T < 0.010 ng/mL (0.00-0.029) 12/07/17 06:13 NT-Pro-B Natriuret Pep 96.33 pg/mL (0-450) 12/06/17 17:32 Total Protein 7.0 g/dL (6.3-8.2) 12/08/17 05:26 Albumin 3.5 g/dL (3.9-5) L 12/08/17 05:26 Albumin/Globulin Ratio 1.0 % 12/08/17 05:26 HCG, Qual Negative (Negative) 12/06/17 17:32 Urine Color Yellow (Yellow) 12/06/17 17:57 Urine Turbidity Clear (Clear) 12/06/17 17:57 Urine pH 6.0 (5.0-7.0) 12/06/17 17:57 Ur Specific [place] 1.025 (1.003-1.030) 12/06/17 17:57 Urine Protein 100 mg/dl mg/dL (Negative) 12/06/17 17:57 Urine Glucose (UA) Neg mg/dL (Negative) 12/06/17 17:57 Urine Ketones Neg mg/dL (Negative) 12/06/17 17:57 Urine Blood Neg (Negative) 12/06/17 17:57 Urine Nitrite Neg (Negative) 12/06/17 17:57 Urine Bilirubin Neg (Negative) 12/06/17 17:57 Urine Urobilinogen 4.0 mg/dL (<2.0) 12/06/17 17:57 Ur Leukocyte Esterase Neg (Negative) 12/06/17 17:57 Urine WBC (Auto) 2.0 /HPF (0.0-6.0) 12/06/17 17:57 Urine RBC (Auto) 2.0 /HPF (0.0-6.0) 0418 17:57 U Epithel Cells (Auto) 4.0 /HPF (0-13.0) 18 17:57 Urine Bacteria (Auto) 1+ /HPF (Negative) 18 17:57 Urine Mucus 3+ /HPF 12/06/17 17:57
[2017-12-09 07:03] LABS: BUN/Creatinine Ratio 17; Blood Urea Nitrogen 12 mg/dL (7-17); Calcium 8.8 mg/dL (8.4-10.2); Hemolysis Index 0
[2017-12-09] MEDS ORDERED: LEXISCAN IV ONE (10:06)
[2017-12-09] MEDS: LASIX IV SCH ×2 (12:52→17:28)
[2017-12-09] MEDS: PROTONIX PO SCH (12:53)
[2017-12-09] MEDS: COZAAR PO SCH (12:53)
[2017-12-09] MEDS: LOPRESSOR PO SCH ×2 (12:54→22:21)
[2017-12-09] MEDS: BABY ASPIRIN PO SCH (12:54)
[2017-12-09] MEDS: APRESOLINE PO SCH ×3 (12:54→21:30)
[2017-12-09] MEDS: LOVENOX SUB-Q SCH (12:55)
[2017-12-09] MEDS ORDERED: APRESOLINE PO SCH (14:24)
--- NOTE | 2017-12-09 14:25 | Progress Note ---
Assessment and Plan Assessment and plan: Acute diastolic HF exacerbation -improving on tx -echocardiogram showed EF of 55-60% with diastolic dysfunction -Sign Erector And Repairer following Hypertension -BP fairly controlled, hydralazine dose increased Chest pain, resolved -serial troponin levels neg -NST done, report pending Leukocytosis, likely reactive -resolved Morbid obesity with BMI of 49.5 -pt counseled on weight loss Migraines -on PRN analgesics Nocturnal pauses per cardiac technician -probably sec to LAUREN -pt will need outpt sleep study -NST done, report pending Tobacco abuse -pt counseled on cessation Prophylaxis -DVT prophylaxis with Lovenox Disp: d/c pt when cleared by cardiology History Interval history: Patient has no new complaints. He denies chest pain or sob Hospitalist Physical - Constitutional Vitals: Temp Pulse Resp BP Pulse Ox 97.9 F 90 20 152/87 98 12/09/17 07:23 12/09/17 12:54 12/09/17 07:23 12/09/17 12:54 12/09/17 07:23 General appearance: Present: no acute distress - EENT Eyes: Present: PERRL, EOM intact ENT: clear oral mucosa - Neck Neck: Present: supple - Respiratory Respiratory effort: normal Respiratory: bilateral: CTA - Cardiovascular Rhythm: regular Heart Sounds: Present: S1 & S2 - Extremities Extremity abnormal: edema (LT LE) - Abdominal General gastrointestinal: soft, non-tender, normal bowel sounds - Neurologic Neurologic: CNII-XII intact Results - Labs CBC & Chem 7: 12/08/17 05:26 12/09/17 06:23 Labs: Laboratory Last Values WBC 9.8 K/mm3 (4.5-11.0) 12/08/17 05:26 RBC 3.74 M/mm3 (3.65-5.03) 12/08/17 05:26 Hgb 10.0 gm/dl (10.1-14.3) L 12/08/17 05:26 Hct 32.4 % (30.3-42.9) 12/08/17 05:26 MCV 87 fl (79-97) 12/08/17 05:26 MCH 27 pg (28-32) L 12/08/17 05:26 MCHC 31 % (30-34) 12/08/17 05:26 RDW 20.8 % (13.2-15.2) H 12/08/17 05:26 Plt Count 271 K/mm3 (140-440) 12/08/17 05:26 Lymph % (Auto) 19.8 % (13.4-35.0) 12/08/17 05:26 [place] % (Auto) 8.9 % (0.0-7.3) H 12/08/17 05:26 Eos % (Auto) 0.6 % (0.0-4.3) 12/08/17 05:26 Baso % (Auto) 0.8 % (0.0-1.8) 12/08/17 05:26 Lymph # 1.9 K/mm3 (1.2-5.4) 12/08/17 05:26 [place] # 0.9 K/mm3 (0.0-0.8) H 12/08/17 05:26 Eos # 0.1 K/mm3 (0.0-0.4) 12/08/17 05:26 Baso # 0.1 K/mm3 (0.0-0.1) 12/08/17 05:26 Seg Neutrophils % 69.9 % (40.0-70.0) 12/08/17 05:26 Seg Neutrophils # 6.9 K/mm3 (1.8-7.7) 12/08/17 05:26 Sodium 144 mmol/L (137-145) 12/09/17 06:23 Potassium 3.8 mmol/L (3.6-5.0) 12/09/17 06:23 Chloride 96.9 mmol/L (98-107) L 12/09/17 06:23 Carbon Dioxide 34 mmol/L (22-30) H 12/09/17 06:23 Anion Gap 17 mmol/L 12/09/17 06:23 BUN 12 mg/dL (7-17) 12/09/17 06:23 Creatinine 0.7 mg/dL (0.7-1.2) 12/09/17 06:23 Estimated GFR > 60 ml/min 12/09/17 06:23 BUN/Creatinine Ratio 17 % 12/09/17 06:23 Glucose 117 mg/dL (65-100) H 12/09/17 06:23 Hemoglobin A1c 6.0 % (4-6) 12/07/17 06:52 Calcium 8.8 mg/dL (8.4-10.2) 12/09/17 06:23 Magnesium 1.70 mg/dL (1.7-2.3) 12/09/17 06:23 Total Bilirubin 0.20 mg/dL (0.1-1.2) 12/08/17 05:26 AST 26 units/L (5-40) 12/08/17 05:26 ALT 20 units/L (7-56) 12/08/17 05:26 Alkaline Phosphatase 61 units/L (35-129) 12/08/17 05:26 Total Creatine Kinase 167 units/L (30-135) H 12/06/17 17:32 Troponin T < 0.010 ng/mL (0.00-0.029) 12/07/17 06:13 NT-Pro-B Natriuret Pep 96.33 pg/mL (0-450) 12/06/17 17:32 Total Protein 7.0 g/dL (6.3-8.2) 12/08/17 05:26 Albumin 3.5 g/dL (3.9-5) L 12/08/17 05:26 Albumin/Globulin Ratio 1.0 % 12/08/17 05:26 TSH 2.220 mlU/mL (0.270-4.200) 12/09/17 06:23 HCG, Qual Negative (Negative) 12/06/17 17:32 Urine Color Yellow (Yellow) 12/06/17 17:57 Urine Turbidity Clear (Clear) 12/06/17 17:57 Urine pH 6.0 (5.0-7.0) 12/06/17 17:57 Ur Specific [place] 1.025 (1.003-1.030) 12/06/17 17:57 Urine Protein 100 mg/dl mg/dL (Negative) 12/06/17 17:57 Urine Glucose (UA) Neg mg/dL (Negative) 12/06/17 17:57 Urine Ketones Neg mg/dL (Negative) 12/06/17 17:57 Urine Blood Neg (Negative) 12/06/17 17:57 Urine Nitrite Neg (Negative) 12/06/17 17:57 Urine Bilirubin Neg (Negative) 12/06/17 17:57 Urine Urobilinogen 4.0 mg/dL (<2.0) 12/06/17 17:57 Ur Leukocyte Esterase Neg (Negative) 12/06/17 17:57 Urine WBC (Auto) 2.0 /HPF (0.0-6.0) 12/06/17 17:57 Urine RBC (Auto) 2.0 /HPF (0.0-6.0) 12/06/17 17:57 U Epithel Cells (Auto) 4.0 /HPF (0-13.0) 12/06/17 17:57 Urine Bacteria (Auto) 1+ /HPF (Negative) 12/06/17 17:57 Urine Mucus 3+ /HPF 12/06/17 17:57
--- NOTE | 2017-12-09 15:23 | Event Note ---
Date: 12/09/17 Patient underwent a Lexiscan thallium stress test, normal perfusion study. Cardiac status is stable, no further cardiac ischemic workup is indicated.
[2017-12-09] MEDS ORDERED: AMBIEN PO PRN (21:52)
--- NOTE | 2017-12-10 00:02 | Treadmill Report ---
THALLIUM STRESS TEST LEFT VENTRICLE: Left ventricular chamber size is within normal spread. Perfusion study demonstrates homogeneous uptake of the tracer in all segments, no significant perfusion defects identified. Gated analysis demonstrates normal left ventricular systolic function, ejection fraction of 72%. CONCLUSION: Normal myocardial perfusion. JOB# [id number] CA/NTS
[2017-12-10] MEDS: LASIX IV SCH (05:20)
[2017-12-10 09:15] VITALS: BP 130/84
[2017-12-10] MEDS: COZAAR PO SCH (09:16)
[2017-12-10] MEDS: APRESOLINE PO SCH (09:16)
[2017-12-10] MEDS: LOVENOX SUB-Q SCH (09:16)
[2017-12-10] MEDS: PROTONIX PO SCH (09:17)
[2017-12-10] MEDS: LOPRESSOR PO SCH (09:17)
[2017-12-10] MEDS: BABY ASPIRIN PO SCH (09:17)
--- NOTE | 2017-12-10 11:13 | Discharge Summary ---
Providers - Providers Date of Admission: 12/06/17 23:13 Date of discharge: 12/10/17 Attending physician: BRIAN PEREIRA 12/06/17 21:13 Consult to Physician [CONS] Urgent Comment: Consulting Provider: JOSE DUQUE Physician Instructions: Reason For Exam: sob, edema, cardiomegaly Primary care physician: FIELD CONTROL INSPECTOR Hospitalization Condition: Stable Hospital course: Patient is 47 yo woman with a history of tobacco dependency, morbid obesity bmi 48.2 with undiagnosed hypertension who presented with sob, cp and underwent through cardiac evalutation with neg stress test. She had nocturnal cardiac pause 2 days ago, 12/08/17 thought to be due to un-diagnosis obstructive sleep apnea and was seen by Cardiology. She was counselled on getting sleep study. -Chest pains, atypical, most likely msk in nature -suspected LAUREN: see Dr. Hawk outpatient -Newly diagnosis HTN, presented with HTN urgency: now on 4 bp medications -Morbid obesity: lifestyle modifications discussed. -Tobacco dependency: middle school counselor on stopping Disposition: DC-01 TO HOME OR SELFCARE Time spent for discharge: 35 minutes Core Measure Documentation - Palliative Care Palliative Care/ Comfort Measures: Not Applicable - Core Measures Any of the following diagnoses?: none - VTE Discharge Requirements Deep Vein Thrombosis/Pulmonary Embolism Present on Admission: No Has pt received <5 days of overlap therapy or INR<2.0: No Anticoagulant overlap therapy prescribed at discharge: No Contraindication No Overlap Therapy order at DC: Not Indicated Exam - Physical Exam Narrative exam: GEN: Morbid obesity BMI 48.2 NAD, AWAKE, ALERT, ORIENTATED 3 HEENT: NCAT, EOMI, PERRL, OP Clear NECK: supple, no adenopathy, no thyromegaly, no JVD CVS/HEART: RRR, NORMAL S1S2, pulses present bilaterally CHEST/LUNGS: CTA B, Symmetrical chest expansion, good air entry bilaterally GI/Abdomen: soft, NTND, good bowel sounds, no guarding or rebound /Bladder: no suprapubic tenderness, no CVA or paraspinal tenderness EXT/Skin: 1 plus pitting edema bilaterally MSK: FROM x 4 Neuro: CN 2-12 grossly intact, no new focal deficits Psych: calm - Constitutional Vitals: Temp Pulse Resp BP Pulse Ox 97.9 F 90 18 130/84 98 12/10/17 08:50 12/10/17 09:17 12/10/17 08:50 12/10/17 09:17 12/10/17 08:50 Plan Activity: other (no strenous activity until cleared by pcp) Diet: low salt Special Instructions: smoking cessation Follow up with: TAMERA HAWK MD [Staff Physician] - 7 Days PRIMARY CARE, [Primary Care Provider] - 7 Days Prescriptions: Furosemide [Lasix TAB] 40 mg PO QDAY #30 tablet hydrALAZINE [Apresoline TAB] 100 mg PO TID #90 tab Lisinopril [Zestril TAB] 20 mg PO QDAY #30 tablet Metoprolol [Lopressor TAB] 12.5 mg PO BID #60 tablet
--- NOTE | 2017-12-10 11:33 | Progress Note ---
Assessment and Plan Shortness of breath Hypertension -better Nocturnal pause seen on telemetry no reoccurrence patient has not had any silvestre-arrhythmias while awake. normal TSH Obesity Tobacco abuse Normal LVEF on echocardiogram. Normal MPI this admission Conservative cardiac management. Subjective Date of service: 12/10/17 Principal diagnosis: chest pain Interval history: No events reported on telemetry overnight. Patient has no complaints. Objective Vital Signs Temp Pulse Pulse Resp Resp BP BP 12/10/17 10:00 20 12/10/17 09:17 90 130/84 12/10/17 09:16 90 130/84 12/10/17 08:50 97.9 F 90 18 130/84 12/10/17 04:20 98.1 F 94 H 20 131/76 12/09/17 22:21 89 112/64 12/09/17 22:03 98.0 F 92 H 20 112/64 12/09/17 22:00 90 18 18 12/09/17 19:41 98.3 F 88 121/71 12/09/17 19:38 90 12/09/17 17:10 98.2 F 81 20 141/78 12/09/17 14:00 80 12/09/17 13:53 98.1 F 83 20 132/83 12/09/17 12:54 90 152/87 12/09/17 12:53 90 152/87 12/09/17 12:47 98.4 F 92 H 152/87 Pulse Ox 12/10/17 10:00 98 12/10/17 09:17 12/10/17 09:16 12/10/17 08:50 98 12/10/17 04:20 93 12/09/17 22:21 12/09/17 22:03 98 12/09/17 22:00 12/09/17 19:41 96 12/09/17 19:38 12/09/17 17:10 98 12/09/17 14:00 12/09/17 13:53 96 12/09/17 12:54 12/09/17 12:53 12/09/17 12:47 97 - Physical Examination General: No Apparent Distress HEENT: Positive: PERRL Cardiac: Positive: Reg Rate and Rhythm Lungs: Positive: Decreased Breath Sounds Neuro: Positive: Grossly Intact Extremities: Absent: edema
== END 2017-12-10 14:21 | disposition home or self-care (01) | DRG 292 ==
LOC: ED 14:48 → 4A 23:13
PROVIDERS: ADMIT Internal Medicine; ATTEND Internal Medicine
DX: I11.0 Hypertensive heart disease with heart failure (principal); I16.1 Hypertensive emergency; Z68.41 Body mass index [BMI] 40.0-44.9, adult; F17.210 Nicotine dependence, cigarettes, uncomplicated; Z91.19 Patient's noncompliance with other medical treatment and regimen; R07.89 Other chest pain; I50.33 Acute on chronic diastolic (congestive) heart failure; G47.33 Obstructive sleep apnea (adult) (pediatric); I16.0 Hypertensive urgency; E66.01 Morbid (severe) obesity due to excess calories; Z71.6 Tobacco abuse counseling; G43.909 Migraine, unspecified, not intractable, without status migrainosus; Z79.82 Long term (current) use of aspirin
CPT/HCPCS: 36415; 71046; 78452; 80048; 80053; 81001; 82550; 83036; 83735; 83880; 84443; 84484; 84703; 85025; 93005; 93010; 93017; 93306; A9502; J1650; J1940; J2785

== ENCOUNTER 2021-10-17 16:22 | Emergency (ER) | payer SELFPAY ==
[2021-10-17 16:31] VITALS: BP 185/91
--- NOTE | 2021-10-17 17:20 | Emergency Department Report ---
ED General Adult HPI - General Chief complaint: Back Pain/Injury Stated complaint: NECK,BACK LFT SHOULDER PAIN Time Seen by Provider: 10/17/21 17:03 Source: patient Mode of arrival: Ambulatory Limitations: No Limitations - History of Present Illness Initial comments: Chief complaint: Neck pain arm numbness upper back pain HPI: This is a 51-year-old female history of dyslipidemia, sciatica, hypertension who presents with neck pain left arm hand numbness upper back pain since Wednesday. 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 Turning head turning neck and driving. Follow-up as 7 days she has had neck pain upper back pain. Worse with neck turning. She has numbness in her left arm with intact strength. She denies direct trauma. [place] like sciatica in her neck and arm. Tylenol provided mild relief last night. -: Gradual, week(s) (1 week) Location: neck, back, left, upper extremity Severity scale (0 -10): 7 Consistency: constant Improves with: medication (Tylenol) Worsens with: other (Neck arm movement) Associated Symptoms: other (Numbness) - Related Data Previous Rx's Medication Instructions Recorded Last Taken Type Aspirin [Aspirin BABY CHEW TAB] 81 mg PO QDAY #30 tab.chew 12/10/17 Unknown Rx Furosemide [Lasix TAB] 40 mg PO QDAY #30 tablet 12/10/17 Unknown Rx Metoprolol [Lopressor TAB] 12.5 mg PO BID #60 tablet 12/10/17 Unknown Rx hydrALAZINE [Apresoline TAB] 100 mg PO TID #90 tab 12/10/17 Unknown Rx lisinopriL [Zestril TAB] 20 mg PO QDAY #30 tablet 12/10/17 Unknown Rx Cyclobenzaprine [Flexeril] 10 mg PO TID PRN #30 10/17/21 Unknown Rx HYDROcodone/APAP 5-325 [[place] 1 each PO Q6HR PRN #10 tablet 10/17/21 Unknown Rx 5/325] Ibuprofen [Motrin 400 MG tab] 400 mg PO TID 5 Days #15 tablet 10/17/21 Unknown Rx Allergies Allergy/AdvReac Type Severity Reaction Status Date / Time No Known Allergies Allergy Unverified 05/17/13 01:43 ED Review of Systems ROS: Stated complaint: NECK,BACK LFT SHOULDER PAIN Other details as noted in HPI Comment: All other systems reviewed and negative Constitutional: denies: chills, fever, malaise Respiratory: denies: cough, shortness of breath Cardiovascular: denies: chest pain Gastrointestinal: denies: abdominal pain, nausea, vomiting Neurological: paresthesias ED Past Medical Hx - Past Medical History Previous Medical History?: Yes Hx Headaches / Migraines: Yes Additional medical history: Uterine Fibroids,obesity - Surgical History Past Surgical History?: Yes Additional Surgical History: Fibroid removal- 2003 - Social History Smoking Status: Current Every Day Smoker Substance Use Type: None - Medications Home Medications: Home Medications Medication Instructions Recorded Confirmed Last Taken Type Aspirin [Aspirin BABY CHEW TAB] 81 mg PO QDAY #30 tab.chew 12/10/17 Unknown Rx Furosemide [Lasix TAB] 40 mg PO QDAY #30 tablet 12/10/17 Unknown Rx Metoprolol [Lopressor TAB] 12.5 mg PO BID #60 tablet 12/10/17 Unknown Rx hydrALAZINE [Apresoline TAB] 100 mg PO TID #90 tab 12/10/17 Unknown Rx lisinopriL [Zestril TAB] 20 mg PO QDAY #30 tablet 12/10/17 Unknown Rx Cyclobenzaprine [Flexeril] 10 mg PO TID PRN #30 10/17/21 Unknown Rx HYDROcodone/APAP 5-325 [[place] 1 each PO Q6HR PRN #10 tablet 10/17/21 Unknown Rx 5/325] Ibuprofen [Motrin 400 MG tab] 400 mg PO TID 5 Days #15 tablet 10/17/21 Unknown Rx ED Physical Exam - General Limitations: No Limitations General appearance: alert, in no apparent distress - Head Head exam: Present: atraumatic, normocephalic - Eye Eye exam: Present: normal appearance - ENT ENT exam: Present: mucous membranes moist - Neck Neck exam: Present: normal inspection, full ROM. Absent: tenderness, meningismus - Respiratory Respiratory exam: Present: normal lung sounds bilaterally. Absent: respiratory distress, wheezes, rales, rhonchi - Cardiovascular Cardiovascular Exam: Present: regular rate, normal rhythm, normal heart sounds. Absent: systolic murmur, diastolic murmur, rubs, gallop - GI/Abdominal GI/Abdominal exam: Present: soft, normal bowel sounds - Extremities Exam Extremities exam: Present: normal inspection - Expanded Upper Extremity Exam Left Shoulder Exam: Present: normal inspection, full ROM. Absent: tenderness, swelling Upper Arm exam: Present: normal inspection, full ROM Elbow exam: Present: normal inspection, full ROM Forearm Wrist exam: Present: normal inspection, full ROM Hand Wrist exam: Present: normal inspection, full ROM Neuro motor exam: Present: wrist extension intact, thumb opposition intact, thumb IP flexion intact, thumb adduction intact Neurosensory exam: Present: radial nerve intact, ulnar nerve intact, median nerve intact - Back Exam Back exam: Present: normal inspection - Neurological Exam Neurological exam: Present: alert, oriented X3 - Psychiatric Psychiatric exam: Present: normal affect, normal mood - Skin Skin exam: Present: warm, dry, intact, normal color. Absent: rash ED Course Vital Signs 10/17/21 16:30 Temperature 98.4 F Pulse Rate 68 Respiratory 18 Rate Blood Pressure 185/91 O2 Sat by Pulse 99 Oximetry ED Medical Decision Making - Medical Decision Making Cervical radiculopathy, cervical disc disease: Prescribed [place] ibuprofen Flexeril. Referred to neurosurgical tooling specialist. Critical care attestation.: If time is entered above; I have spent that time in minutes in the direct care of this critically ill patient, excluding procedure time. ED Disposition Clinical Impression: Cervical radiculopathy Disposition: 01 HOME / SELF CARE / HOMELESS Is pt being admited?: No Does the pt Need Aspirin: No Condition: Stable Instructions: Cervical Radiculopathy, [id number] Prescriptions: Cyclobenzaprine [Flexeril] 10 mg PO TID PRN #30 PRN Reason: Muscle Spasm Ibuprofen [Motrin 400 MG tab] 400 mg PO TID 5 Days #15 tablet HYDROcodone/APAP 5-325 [[place] 5/325] 1 each PO Q6HR PRN #10 tablet PRN Reason: Pain Referrals: MEGHA WALLS II, MD [Staff Physician] - 3-5 Days Forms: Work/School Release Form(ED)
[2021-10-17] MEDS ORDERED: IBUPROFEN 800 MG TAB PO ONE (17:22)
[2021-10-17] MEDS ORDERED: HYDROcodone/ACETAMINOPHEN 5-325 MG TAB PO ONE (17:22)
== END 2021-10-17 17:43 | disposition home or self-care (01) ==
LOC: ED 16:22
DX: M54.12 Radiculopathy, cervical region (principal); F17.200 Nicotine dependence, unspecified, uncomplicated
CPT/HCPCS: 99282